=== PATIENT | female | born 1955 | race Caucasian/White ===

== ENCOUNTER → 2018-06-01 | Outpatient (CLI) | payer BC ==
[~2018-06-01] MED LIST: ANTACID OTC PO; ASPIRIN E.C.81 M1 PO; COLACE100 MG PO; FIBER LAXATIVE625 M1 PO; Milk Of Magnesia,MOM PO; Proventil,Ventolin H IH; ULTRAM50 MG PO
== END | disposition home or self-care (01) ==
LOC: CDC 11:09
DX: Z01.810 Encounter for preprocedural cardiovascular examination (principal)
CPT/HCPCS: 93000

== ENCOUNTER 2018-06-12 05:32 | Day surgery (SDC) | payer BC ==
[~2018-06-12] VITALS: Ht 170.2 cm; Wt 75.7 kg
[~2018-06-12 05:32] MED LIST changes: +PROAIR HFA8.5 GM IH
[2018-06-12 05:50] VITALS: BP 138/65
[2018-06-12] MEDS ORDERED: ULTRAM50 MG PO (09:08)
[2018-06-12 10:20] VITALS: BP 111/70
[2018-06-12 11:19] VITALS: BP 121/78
== END 2018-06-12 11:47 | disposition home or self-care (01) ==
LOC: SDC
PROC: 0WUF4JZ Supplement Abdominal Wall with Synthetic Substitute, Percutaneous Endoscopic Approach (ICD-10-PCS; principal; 2018-06-12)
DX: K43.0 Incisional hernia with obstruction, without gangrene (principal); Z85.42 Personal history of malignant neoplasm of other parts of uterus; Z90.710 Acquired absence of both cervix and uterus
CPT/HCPCS: C1781; J0131; J0690; J1100; J1170; J1885; J2175; J2250; J2405; J2710; J3010; J7120; J7643